=== PATIENT | male | born 1995 | race Caucasian/White ===

== ENCOUNTER 2024-10-06 20:10 | Outpatient (CLI) | payer BC, SELFPAY | END 2024-10-06 20:11 | disposition home or self-care (01) | LOC: AMB 10-15 10:52 | PROVIDERS: Visit Provider Emergency Medicine Emergency Medical Services | DX: S61.210A Laceration without foreign body of right index finger without damage to nail, initial encounter (principal); W26.0XXA Contact with knife, initial encounter; Y92.009 Unspecified place in unspecified non-institutional (private) residence as the place of occurrence of the external cause | CPT/HCPCS: A0998 ==

== ENCOUNTER 2024-10-06 21:16 | Emergency (ER) | payer BC, SELFPAY ==
--- OUTSIDE RECORDS SUMMARY | 2024-10-06 21:18 | XMS_ITS | Clinical Summary ---
Author Organization [facility] Address [address] [place] [address] Care Team Providers Care Qa Tester Name Role Phone Khanh Delgado MD Primary Care Provider [phone] Source Comments You are receiving this document as you are listed as the primary care provider,follow-up provider, or the patient has been referred to you for consultation.This is in compliance with the Medicare andMedicaid EHR Incentive Program,which states Providers who transition their patient to another setting of careor provider of care or refers their patient to another provider of care shouldprovide summary care record for each transition of care or referral. [facility] Allergies No known active allergies Medications * This document contains information received from the source organization and may not represent a complete record from that organization. melatonin 5 MG tablet Take 5-10mgs one to two hours before bedtime 60 Tab 2 8 Active ALBUterol sulfate HFA 108 (90 Base) MCG/ACT inhaler Inhale 1-2 Puffs every 4 hours as needed for Wheezing. Pharmacy may substitute albuterol HFA inhalers based on insurance 1 Inhaler 3 9 Active Active Problems Problem Noted Date Diagnosed Date Epididymal cyst 09/19/2019 Depression 03/15/2015 Overview (03/08/2016): start wellbutrin 03/2015, added trazodone 06/2015. Recommending behavioral health consult Mild intermittent asthma without complication Immunizations Immunization Administration Dates Next Due 9vHPV (Gardasil 9) 09/18/2019,12/10/2017 DTaP 12/22/1999, 6,05/28/1995,1994,1994 HepA Ped/Adol (1-18 yrs) 07/16/2007,01/18/2007 HepB Ped/Adol (0-18 yrs) 12/17/1995,1994,0 1994 Hib, Unspecified Formulation 05/28/1995,02/15/19 95,1994 Influenza IIV4 (Quadrivalent ) 0.5mL (26086) 09/18/2019 Influenza, Unspecified Formulation 06/04,07/16/2007,06/04/2004,2001 MCV4 (Menactra) 11/06/2005 MMR 12/22/1999,10/03/1995 PPSV23 (Pneumovax) 01/08/2018 Polio, Unspecified Formulation 0,05/28/1995,03/05/1995,1994 TDAP (BOOSTRIX) 11/09/2005 Td 09/28/2017 Tdap 09/28/2017,11/06/2005 Social History Tobacco Use Types Packs/Day Years Used Date Smoking Tobacco: Never Smokeless Tobacco: Never Alcohol Use Standard Drinks/Week Comments Yes 0 (1 standard drink = 0.6 oz pure alcohol) Drinks once every couple of months PHQ-2 Answer Date Recorded PHQ-2 Score 1 03/28/2022 Sex and Gender Information Value Date Recorded Sex Assigned at Not on file Legal Sex Male 9:38 AM CDT Gender Identity Not on file Sexual Orientation Not on file Last Filed Vital Signs Vital Sign Reading Time Taken Comments Blood Pressure 120/61 08/06/2021 2:03 PM MANAGER PROCESS EXCELLENCE Pulse 88 08/06/2021 2:11 PM MANAGER PROCESS EXCELLENCE Temperature 38 C (100.4 F) 08/06/2021 10:03 AM MANAGER PROCESS EXCELLENCE Respiratory Rate 20 08/06/2021 2:11 PM MANAGER PROCESS EXCELLENCE Oxygen Saturation 97% 08/06/2021 2:11 PM MANAGER PROCESS EXCELLENCE Inhaled Oxygen Concentration - - Weight 67.1 kg (148 lb) 09/18/2019 10:29 AM MANAGER PROCESS EXCELLENCE Height 171.5 cm (5' 7.5) 09/18/2019 10:29 AM CS T Body Mass Index 22.84 09/18/2019 10:29 AM MANAGER PROCESS EXCELLENCE Plan of Treatment Health Maintenance Due Date Last Done Comments Hep C Screening (Preventive Services) 1994 Pneumococcal (2 of 2 - PCV) 01/08/2019 01/08/2018 HPV Vaccine (3 - Risk male 3-dose series) 01/17/2020 09/18/2019, 12/10/2017 Asthma ACT (score of 20 or higher) 09/18/2020 09/18/2019, 07/23/2019, 01/08/2018 Adult Preventive Visit 09/18/2021 09/18/2019 COVID-19 Vaccine ( season) 2024 12/25/2020 Influenza (#1) 2024 09/18/2019, 05/08, 07/16/2007, Additional history exists DTaP/Tdap/Td (10 - Tdap) 09/28/2027 018, 09/28/2017, 11/09/2005, Additional history exists Zoster/Shingles (1 of 2) 2044 Hib Aged Out 05/28/1995, 02/03, 1994 No longer eligible based on patient's age to complete this topic HepB Completed 12/17/1995, 12/04, 1994 IPV (Polio) Completed 12/22/1999, 05/07, 03/05/1995, Additional history exists MCV4 Aged Out 11/06/2005 No longer eligi ble based on patient's age to complete this topic HepA Completed 07/16/2007, 01/18/2007 HIV Screening (Preventive Services) Completed 09/18/2019, 03/10/2016 Meningococcal B Aged Out No longer el igible based on patient's age to complete this topic Procedures Procedure Name Priority Date/Time Associated Diagnosis Comments HIV 1/2 AG/AB 4TH GEN Routine 09/18/2019 2:13 PM MANAGER PROCESS EXCELLENCE Screening for HIV (human immunodeficiency virus) from Last 3 Months or Most Recently Relevant to Health Maintenance Results * HIV 1/2 Ag/Ab 4th Generation (09/18/2019 2:13 PM MANAGER PROCESS EXCELLENCE) HIV 1/2 Antigen/Antib dain (4th generation) Negative (Non Reactive) Negative (Non Reactive) 09/18/2019 4:13 PM MANAGER PROCESS EXCELLENCE [facility] Comment:HIV-1 p24 Antigen an d HIV-1/HIV-2 Antibody not detected Blood Venipuncture / Unknown 09/18/2019 2:13 PM MANAGER PROCESS EXCELLENCE 09/18/2019 2:13 PM MANAGER PROCESS EXCELLENCE us Khanh Delgado MD LAB_1 Final Result [facility] [address] [place] [address], [facility] from Last 3 Months or Most Recently Relevant to Health Maintenance Insurance [employer] Advance Directives * Full Code (Latest Code Status on File) Date Activated Date Inactivated Comments 10/16/2016 3:09 PM 10/16/2016 7:07 PM Care Teams Qa Tester Relationship Specialty Start Date End Date Khanh Delgado MD [address] [place] [address] [facility] - General 03/02/15
--- OUTSIDE RECORDS SUMMARY | 2024-10-06 21:18 | XMS_ITS | Clinical Summary ---
Author Organization [facility] Address [address] [place] [address]. [place] [address] Care Team Providers Care Thoroughbred Horse Farm Manager Name Role Phone Artemio Rankin Judd OD Unavailable [phone] Allergies Active Allergy Reactions Criticality Noted Date Comments Cats 02/20/2012 Dust Mites 02/20/2012 Medications albuterol 90 MCG/ACT inhalerIndicati ons:Pain in limb,Other specified viral warts Inhale 2 puffs into the lungs every 6 hours as needed. Active BuPROPion HCl (WELLBUTRIN PO) Acti ve TRAZODONE HCL PO Active cephALEXin (KEFLEX) 500 MG capsuleIndicati ons:Ingrowing nail Take 1 capsule (500 mg) by mouth 2 times daily 20 capsule 0 5 Active Additional Information Patient not taking.Reported on 12/12/2023 Active Problems No known active problems Family History Medical History Relation Comments Glaucoma No family hx of Macular Degeneration No family hx of Social History Tobacco Use Types Packs/Day Years Used Date Smoking Tobacco: Never Smokeless Tobacco: Never Alcohol Use Standard Drinks/Week Comments Not Asked 0 (1 standard drink = 0.6 oz pur e alcohol) PHQ-2 Answer Date Recorded PHQ-2 Score 0 12/12/2023 Adolescent Education Answer Date Record ed Getting School Help Needed Not on file 12/11 Sex and Gender Information Value Date Recorded Sex Assigned at Male 12/13/2023 11:49 PM CDT Legal Sex Male 3:09 AM PLATING STRIPPER Gender Identity Male 12/13/2023 11:49 PM CDT Sexual Orientation Choose not to disclose 05/09/ 2024 11:49 PM CDT Last Filed Vital Signs Vital Sign Reading Time Taken Comments Blood Pressure 112/80 07/26/2015 2:38 PM PLATING STRIPPER Pulse 60 02/20/2012 3:50 PM CDT Temperature - - Respiratory Rate - - Oxygen Saturation - - Inhaled Oxygen Concentration - - Weight 63.5 kg (140 lb) 07/26/2015 2:38 PM PLATING STRIPPER Height 172.7 cm (5' 8) 07/26/2015 2:38 PM PLATING STRIPPER Body Mass Index 21.29 07/26/2015 2:38 PM PLATING STRIPPER Plan of Treatment Upcoming Encounters Date Type Department Care Team (Late st Contact Info) Description 12/15/2024 2:30 PM CDT Office Visit [facility] [address] [facility] [address] [place] [address] Artemio Rankin Chi, OD [address] [place], [place] [id number] Health Maintenance Due Date Last Done Comments ADVANCE CARE PLANNING 1994 ANNUAL REVIEW OF HM ORDERS 1994 YEARLY PREVENTIVE VISIT 1997 HIV SCREENING 2009 HEPATITIS C SCREENING 2012 HPV IMMUNIZATION (3 - Male 3-dose series) 12/11/2019 09/18/2019, 12/10/2017 COVID-19 Vaccine ( - season) 2024 12/25/2020 INFLUENZA VACCINE (#1) 2024 0, 06/04/2012, 07/16/2007, Additional history exists PHQ-2 (once per calendar year) 2024 12/12/2023 DTAP/TDAP/TD IMMUNIZATION (9 - Td or Tdap) 09/28/2027 09/28/2017, 11/09/2005, 11/06/2005, Additional history exists ZOSTER IMMUNIZATION (1 of 2) 2044 HEPATITIS B IMMUNIZATION Completed 996, 1994, 1994 MENINGITIS IMMUNIZATION Aged Out 11/06/2005 No l onger eligible based on patient's age to complete this topic Pneumococcal Vaccine: Pediatrics (0 to 5 Years) and At-Risk Patients (6 to 49 Years) Aged Out 01/08/2018 No longer eligible based on patient's age to complete this topic Insurance BCBS OUT OF STATE BCBS OUT OF STATE Care Teams Thoroughbred Horse Farm Manager Relationship Specialty Start Date End Date Artemio Rankin Chi, OD [address] [place] [address] Assigned Surgical Provider 12/27/23
[2024-10-06 21:23] VITALS: BP 112/61; PULSE 64; RESP 16; TEMP 35.9; O2SAT 100; BMI 23.3
--- NOTE | 2024-10-06 21:39 | ED.GENADULT ---
HPI - General Adult General Chief complaint: Unspecified Complaint, Adult Stated complaint: Shaking, lightheaded Time Seen by Provider: 10/06/24 21:19 History of Present Illness HPI narrative: This 29-year-old male comes in with an injury to his right index finger. He has a very small laceration on the tip of the finger that bled initially and then had recurrent bleeding but is no longer bleeding. He has a Band-Aid over it but comes in also with some persistent shaking and tremor like activity. He states he has not had symptoms like this in the past and yet he is able to function normally. He is able to ambulate and speak normally. Related Data Home Medications ?Medication ?Instructions ?Recorded ?Confirmed No Known Home Medications 10/06/24 10/06/24 Allergies Allergy/AdvReac Type Severity Reaction Status Date / Time No Known Drug Allergies Allergy Verified 08/03/23 13:33 Review of Systems Status of ROS: Reports: 10 or more systems reviewed and unremarkable except as noted in History and below Narrative: Constitutional: No fevers, no weight gain or loss. Eyes: No discharge. No vision changes. HENT: No congestion, no sore throat, no ear pain. Cardiovascular: No chest pain, no palpitations. Respiratory: No shortness of breath, no wheezes, no cough. Gastrointestinal: No abdominal pain, no vomiting, no diarrhea. Genitourinary: No dysuria, no hematuria. Musculoskeletal: Normal range of motion. Skin: No rashes, no pruritis. Neurological: No dizziness, weakness, sensory change, speech change. Endo/Heme/Allergies: No bruising or bleeding. No polydipsia. Pysch: no suicidality, no anxiety, no insomnia. All other systems reviewed and are negative. [facility] Social History Smoking Status: Never smoker How often do you have a drink containing alcohol: never AUDIT-C Alcohol total score: 0 Non-prescribed substance use: denies use Exam Narrative: Exam Narrative: Constitutional: Well-developed, well-nourished, no acute distress. HEENT: Normocephalic, atraumatic. Neck: Normal range of motion. Nontender. Supple. Heart: Regular. No murmurs. Normal rate. Intact distal pulses. Lungs: Clear to auscultation. No chest discomfort. No wheezes, rhonchi, or rales. Abdomen: Normal bowel sounds. Nontender. No rebound tenderness. Genitalia: Deferred. Back: No midline tenderness. Normal range of motion. Extremities: Normal range of motion. Right index finger has a small laceration less than 1 cm in length. Skin: Intact. No rash. Warm. No erythema or pallor. Neurologic: No altered sensation. No weakness. Alert and oriented. Psychiatric: No suicidality. No anxiety or depression. No insomnia. Nursing notes and vitals signs are reviewed. Const: Vital Signs, click to edit/add: Vital Signs - 24 hr 10/06/24 21:23 10/06/24 21:46 Temperature 96.6 F L Pulse Rate [Pulse Oximeter] 64 87 Respiratory Rate 16 Blood Pressure [Ri t Upper Arm] 112/61 Pulse Oximetry 100 97 Oxygen Delivery Me thod Room Air Room Air Course Vital Signs Vital signs: Initial Vital Signs Temperature 96.6 F L 10/06/24 21:23 Temperature Source Temporal Artery Scan 10/06/24 21:23 Pulse Rate 64 10/06/24 21:23 Respiratory Rate 16 10/06/24 21:23 Blood Pressure 112/61 10/06/24 21:23 Blood Pressure Mean 78 10/06/24 21:23 Blood Pressure Position Sitting 10/06/24 21:23 Pulse Oximetry 100 10/06/24 21:23 Oxygen Delivery Method Room Air 10/06/24 21:23 Vital Signs Temperature 96.6 F L 10/06/24 21:23 Pulse Rate 64 10/06/24 21:23 Respiratory Rate 16 10/06/24 21:23 Blood Pressure 112/61 10/06/24 21:23 Pulse Oximetry 100 10/06/24 21:23 Oxygen Delivery Method Room Air 10/06/24 21:23 Temperature 96.6 F L 10/06/24 21:23 Pulse Rate 87 10/06/24 21:46 Respiratory Rate 16 10/06/24 21:23 Blood Pressure 112/61 10/06/24 21:23 Pulse Oximetry 97 10/06/24 21:46 Oxygen Delivery Method Room Air 10/06/24 21:46 Medications Administered Medications: Discontinued Medications Generic Name Dose Route Start Last Admin Trade Name Freq PRN Reason Stop Dose Admin Lorazepam 1 mg 10/06/24 21:39 10/06/24 21:48 Lorazepam 1 Mg Tablet PO 10/06/24 21:40 1 mg ONCE ONE Administration Medical Decision Making MDM Narrative Medical decision making narrative: This patient has a small laceration on the tip of his right index finger. Wound was cleansed and I did apply Dermabond. The patient is having some persistent movements that he states he cannot control however when I applied Dermabond he remains still throughout that application. The patient did receive a tablet of Ativan 1 mg as I suspect that he is having some overflow of his sympathetic nervous system causing this activity. He has normal vital signs and has normal exam otherwise. After receiving Ativan the patient continued to have some tremor like activity. It really seems to be a resting tremor. When he focuses on something or is doing something he has no tremor symptoms. This patient is okay to be discharged home. I advised him to follow-up with his primary physician or consider a neurology clinic appointment if these particular symptoms are persistent. Discharge Plan Discharge Clinical Impression: Finger laceration Patient Disposition: Home, Self-Care Condition: Stable Additional Instructions: Use [id number] medicines as needed and directed. Follow up with MD return if worsening. Consider follow-up appointment with neurology clinic if symptoms are persistent. Prescriptions: No Action No Known Home Medications Follow Up/Referrals: Provider,Not a Local [Primary Care Provider] - Stand Alone Forms: [facility] Info Instructions
[2024-10-06 21:46] VITALS: PULSE 87; O2SAT 97
[2024-10-06] MEDS: LORazepam 1 MG TABLET PO (21:48)
--- OUTSIDE RECORDS SUMMARY | 2024-10-06 21:53 | XMS_ITS | Clinical Summary ---
Author Organization [facility] Address [address] [place] [address] Care Team Providers Care Automotive Vehicle Inspector Name Role Phone Khanh Delgado MD Primary Care Provider [phone] Source Comments You are receiving this document [...] for each transition of care or referral. [facility] Allergies No known active allergies Medications * [...] 05/28/1995,02/15/19 95,1994 Influenza IIV4 (Quadrivalent ) 0.5mL (77045) 09/18/2019 Influenza, Unspecified Formulation 06/04,07/16/2007,06/04/2004,2001 MCV4 (Menactra) [...] Comments Blood Pressure 120/61 08/06/2021 2:03 PM SNAILER Pulse 88 08/06/2021 2:11 PM SNAILER Temperature 38 C (100.4 F) 08/06/2021 10:03 AM SNAILER Respiratory Rate 20 08/06/2021 2:11 PM SNAILER Oxygen Saturation 97% 08/06/2021 2:11 PM SNAILER Inhaled Oxygen Concentration - - Weight 67.1 kg (148 lb) 09/18/2019 10:29 AM SNAILER Height 171.5 cm (5' 7.5) 09/18/2019 10:29 AM CS T Body Mass Index 22.84 09/18/2019 10:29 AM SNAILER Plan of Treatment Health Maintenance Due Date [...] AG/AB 4TH GEN Routine 09/18/2019 2:13 PM SNAILER Screening for HIV (human immunodeficiency virus) from Last 3 Months or Most Recently Relevant to Health Maintenance Results * HIV 1/2 Ag/Ab 4th Generation (09/18/2019 2:13 PM SNAILER) HIV 1/2 Antigen/Antib dain (4th generation) Negative (Non Reactive) Negative (Non Reactive) 09/18/2019 4:13 PM SNAILER [facility] Comment:HIV-1 p24 Antigen an d HIV-1/HIV-2 Antibody not detected Blood Venipuncture / Unknown 09/18/2019 2:13 PM SNAILER 09/18/2019 2:13 PM SNAILER us Khanh Delgado MD LAB_1 Final Result [facility] [address] [place] [address], [facility] from Last 3 Months or Most Recently Relevant to Health Maintenance Insurance [employer] Advance Directives * Full Code (Latest Code Status on File) Date Activated Date Inactivated Comments 10/16/2016 3:09 PM 10/16/2016 7:07 PM Care Teams Automotive Vehicle Inspector Relationship Specialty Start Date End Date Khanh Delgado MD [address] [place] [address] [facility] - General 03/02/15
--- OUTSIDE RECORDS SUMMARY | 2024-10-06 21:53 | XMS_ITS | Clinical Summary ---
Author Organization [facility] [employer] [facility] Address [address] [place] [address] Care Team Providers Care School Cleaner Name Role Phone Surgery, [facility] General Primary Care Pro vider Allergies No known active allergies Medications albuterol HFA (PRO-AIR; VENTOLIN; PROVENTIL) 90 mcg/actuation inhaler Inhale 2 Puffs by mouth. Active Encounters Date Type Department Care Team Description 09/09/2024 3:00 PM CONTROL ROOM AGENT Office Visit [facility] [address] [place] [address] Tripp Kelsey, DPCyrus Follow Up (Left foot) 09/09/2024 Travel from Last 3 Months Immunizations Name Administration Dates Next Due Tdap 09/28/2017 Social History Tobacco Use Types Packs/Day Years Used Date Smoking Tobacco: Never Passive Smoke Exposure: Never Smokeless Tobacco: Never Tobacco Cessation:Counseling Given: Yes Sex and Gender Information Value Date Recorded Sex Assigned at Not on file Legal Sex Male 2:56 PM CONTROL ROOM AGENT Gender Identity Not on file Sexual Orientation Not on file Obstetrics History Last Filed Vital Signs Vital Sign Reading Time Taken Comments Blood Pressure 123/71 06/21/2024 2:54 PM CONTROL ROOM AGENT Pulse 53 09/09/2024 3:05 PM CONTROL ROOM AGENT Temperature 36.6 C (97.9 F) 06/21/2024 2:54 PM CONTROL ROOM AGENT Respiratory Rate 16 06/21/2024 2:54 PM CONTROL ROOM AGENT Oxygen Saturation 98% 09/09/2024 3:05 PM CONTROL ROOM AGENT Inhaled Oxygen Concentration - - Weight 74.8 kg (165 lb) 09/09/2024 3:05 PM CONTROL ROOM AGENT Height 172.7 cm (5' 8) 12/09/2019 6:27 PM CDT Body Mass Index 25.09 12/09/2019 6:27 PM CDT Plan of Treatment Health Maintenance Due Date Last Done Comments Depression screening for age 12+ 2006 HIV for age 15-65 2009 BMI (ht and wt on same day) for age 18+ 2012 Hepatitis C screening for ag e 18-79 2012 COVID-19 vaccine series ( season) 2024 12/25/2020 Influenza for age 9-49 04/06/2024 Tetanus booster 09/28/2027 09/28/2017 Tdap Completed 09/28/2017 Pneumococcal series for age 6-49 Aged Out No longer eligible based on patient's age to complete this topic Insurance [facility] KIRK ALMENDAREZ Care Teams School Cleaner Relationship Specialty Start Date End Date Surgery, [facility] [address] [place] [phone] PCP - General 11/01/20
--- OUTSIDE RECORDS SUMMARY | 2024-10-06 21:53 | XMS_ITS | Clinical Summary ---
Author Organization [facility] Address [address] [place] [address]. [place] [address] Care Team Providers Care Produce Team Lead Name Role Phone Artemio Rankin Judd OD Unavailable [phone] Allergies Active Allergy Reactions Criticality Noted [...] PM CDT Legal Sex Male 3:09 AM CHARGE ENTRY CLERK Gender Identity Male 12/13/2023 11:49 PM CDT Sexual Orientation Choose not to disclose 05/09/ 2024 11:49 PM CDT Last Filed Vital Signs Vital Sign Reading Time Taken Comments Blood Pressure 112/80 07/26/2015 2:38 PM CHARGE ENTRY CLERK Pulse 60 02/20/2012 3:50 PM CDT Temperature - - Respiratory Rate - - Oxygen Saturation - - Inhaled Oxygen Concentration - - Weight 63.5 kg (140 lb) 07/26/2015 2:38 PM CHARGE ENTRY CLERK Height 172.7 cm (5' 8) 07/26/2015 2:38 PM CHARGE ENTRY CLERK Body Mass Index 21.29 07/26/2015 2:38 PM CHARGE ENTRY CLERK Plan of Treatment Upcoming Encounters Date Type Department Care Team (Late st Contact Info) Description 12/15/2024 2:30 PM CDT Office Visit [facility] [place] [address] [facility] [address] [place] [address] Artemio Rankin Chi, OD [address] [place], [place] [id number] Health Maintenance Due Date Last Done Comments [...] STATE BCBS OUT OF STATE Care Teams Produce Team Lead Relationship Specialty Start Date End Date Artemio Rankin Chi, OD [address] [place] [address] Assigned Surgical Provider 12/27/23
== END 2024-10-06 22:46 | disposition home or self-care (01) ==
PROVIDERS: Emergency Provider Emergency Medicine Emergency Medical Services
DX: S61.210A Laceration without foreign body of right index finger without damage to nail, initial encounter (principal); W26.9XXA Contact with unspecified sharp object(s), initial encounter
CPT/HCPCS: 12001; 99282; 99284; A9270

== ENCOUNTER 2025-05-20 19:20 | Emergency (ER) | payer BC, SELFPAY ==
--- OUTSIDE RECORDS SUMMARY | 2025-05-20 19:23 | XMS_ITS | Clinical Summary ---
[facility] Organization [facility] Address [address] [place] [address] Care Team Providers Care General House Worker Name Role Phone Khanh Delgado MD Primary Care Provider [phone] Source Comments You are receiving this document [...] for each transition of care or referral. [facility] No known active allergies Medications melatonin 5 MG tablet Take 5-10mgs one [...] health consult Mild intermittent asthma without complication Encounters Date Type Department Care Team Description 02/24/2025 3:00 PM CDT Telemedicine [place] [id number] Counseling [address] [facility] [place] [address] Rafy Ocasio, [facility] Depression, unspecified depression type (Primary Dx) from Last 3 Months Immunizations Immunization Administration Dates Next Due 9vHPV (Gardasil 9) 09/18/2019,12/10/2017 DTaP 12/22/1999, 6,05/28/1995,1994,1994 HepA Ped/Adol (1-18 yrs) 07/16/2007,01/18/2007 HepB Ped/Adol (0-18 yrs) 12/17/1995,1994,0 1994 Hib, Unspecified Formulation 05/28/1995,02/15/19 95,1994 Influenza IIV4 (Quadrivalent ) 0.5mL (50190) 09/18/2019 Influenza, Unspecified Formulation 06/04,07/16/2007,06/04/2004,2001 MCV4 (Menactra) [...] Comments Blood Pressure 120/61 08/06/2021 2:03 PM ENVIRONMENTAL PERMITTING SPECIALIST Pulse 88 08/06/2021 2:11 PM ENVIRONMENTAL PERMITTING SPECIALIST Temperature 38 C (100.4 F) 08/06/2021 10:03 AM ENVIRONMENTAL PERMITTING SPECIALIST Respiratory Rate 20 08/06/2021 2:11 PM ENVIRONMENTAL PERMITTING SPECIALIST Oxygen Saturation 97% 08/06/2021 2:11 PM ENVIRONMENTAL PERMITTING SPECIALIST Inhaled Oxygen Concentration - - Weight 67.1 kg (148 lb) 09/18/2019 10:29 AM ENVIRONMENTAL PERMITTING SPECIALIST Height 171.5 cm (5' 7.5) 09/18/2019 10:29 AM CS T Body Mass Index 22.84 09/18/2019 10:29 AM ENVIRONMENTAL PERMITTING SPECIALIST Plan of Treatment Health Maintenance Due Date Last Done Comments Hep C Screening (Preventive Services) 1994 Pneumococcal Vaccine (2 of 2 - PCV) 01/08/2019 01/08/2018 HPV Vaccine (3 - Risk male 3-dose series) 01/17/2020 09/18/2019, 12/10/2017 Asthma ACT (score of 20 or higher) 09/18/2020 09/18/2019, 07/23/2019, 01/08/2018 Adult Preventive Visit 09/18/2021 09/18/2019 COVID-19 Vaccine ( season) 2025 12/25/2020 Influenza Vaccine (#1) 2025 0, 06/04/2012, 07/16/2007, Additional history exists DTaP/Tdap/Td Vaccine (10 - Tdap) 09/28/2027 09/28/2017, 09/28/2017, 11/09/2005, Additional history exists Zoster/Shingles Vaccine (1 of 2) 2044 Hib Vaccine Aged Out 05/28/1995, 02/03, 1994 No longer eligible based on patient's age to complete this topic HepB Vaccine Completed 12/17/1995, 12/04, 1994 IPV (Polio) Vaccine Completed 12/22/1999, 05/28/1995, 03/05/1995, Additional history exists MCV4 Vaccine Aged Out 11/06/2005 No longer eligi ble based on patient's age to complete this topic HepA Vaccine Completed 07/16/2007, 01/18/2007 HIV Screening (Preventive Services) Completed 09/18/2019, 03/10/2016 Meningococcal B Vaccine Aged Out No l onger eligible based on patient's age to complete this topic Procedures Procedure Name Priority Date/Time Associated Diagnosis Comments HIV 1/2 AG/AB 4TH GEN Routine 09/18/2019 2:13 PM ENVIRONMENTAL PERMITTING SPECIALIST Screening for HIV (human immunodeficiency virus) from Last 3 Months or Most Recently Relevant to Health Maintenance Results * HIV 1/2 Ag/Ab 4th Generation (09/18/2019 2:13 PM ENVIRONMENTAL PERMITTING SPECIALIST) HIV 1/2 Antigen/Antib dain (4th generation) Negative (Non Reactive) Negative (Non Reactive) 09/18/2019 4:13 PM ENVIRONMENTAL PERMITTING SPECIALIST [facility] Comment:HIV-1 p24 Antigen an d HIV-1/HIV-2 Antibody not detected Blood Venipuncture / Unknown 09/18/2019 2:13 PM ENVIRONMENTAL PERMITTING SPECIALIST 09/18/2019 2:13 PM ENVIRONMENTAL PERMITTING SPECIALIST us Khanh Delgado MD LAB_1 Final Result [facility] [address] [place] [address], [facility] from Last 3 Months or Most Recently Relevant to Health Maintenance Insurance [employer] Advance Directives * Full Code (Latest Code Status on File) Date Activated Date Inactivated Comments 10/16/2016 3:09 PM 10/16/2016 7:07 PM Care Teams General House Worker Relationship Specialty Start Date End Date Khanh Delgado MD [address] [place] [address] PCP - General 03/02/15
--- OUTSIDE RECORDS SUMMARY | 2025-05-20 19:23 | XMS_ITS | Clinical Summary ---
Author Organization [facility] Address [address] [place] [address]. [place] [address] Care Team Providers Care Filter Plant Operator Name Role Phone Artemio Rankin Judd OD Unavailable [phone] Allergies Active Allergy Reactions Criticality Noted [...] PM CDT Legal Sex Male 3:09 AM SHALE PLANER OPERATOR Gender Identity Male 12/13/2023 11:49 PM CDT Sexual Orientation Choose not to disclose 05/09/ 2024 11:49 PM CDT Last Filed Vital Signs Vital Sign Reading Time Taken Comments Blood Pressure 112/80 07/26/2015 2:38 PM SHALE PLANER OPERATOR Pulse 60 02/20/2012 3:50 PM CDT Temperature - - Respiratory Rate - - Oxygen Saturation - - Inhaled Oxygen Concentration - - Weight 63.5 kg (140 lb) 07/26/2015 2:38 PM SHALE PLANER OPERATOR Height 172.7 cm (5' 8) 07/26/2015 2:38 PM SHALE PLANER OPERATOR Body Mass Index 21.29 07/26/2015 2:38 PM SHALE PLANER OPERATOR Plan of Treatment Health Maintenance Due Date Last Done Comments ADVANCE CARE PLANNING 1994 ANNUAL REVIEW OF HM ORDERS 1994 YEARLY PREVENTIVE VISIT 1997 HIV SCREENING 2009 HEPATITIS C SCREENING 2012 HPV VACCINE (3 - Male 3-dose series) 12/11/2019 09/18/2019, 12/10/2017 PHQ-2 (once per calendar year) 2024 12/12/2023 COVID-19 VACCINE ( season) 2025 12/25/2020 INFLUENZA VACCINE (#1) 2025 0, 06/04/2012, 07/16/2007, Additional history exists DTAP/TDAP/TD VACCINE (9 - Td or Tdap) 09/28/2027 09/28/2017, 11/09/2005, 11/06/2005, Additional history exists ZOSTER VACCINE (1 of 2) 2044 HEPATITIS B VACCINE Completed 12/17/1995, 1994, 1994 MENINGITIS VACCINE Aged Out 11/06/2005 No longer eligible based on patient's age to complete this topic PNEUMOCOCCAL VACCINE: PEDIATRICS (0 to 5 YEARS) AND AT-RISK PATIENTS (6 to 49 YEARS) Aged Out 01/08/2018 No longer eligible based on patient's age to complete this topic Insurance BCBS OUT OF STATE BCBS OUT OF STATE Care Teams Filter Plant Operator Relationship Specialty Start Date End Date Artemio Rankin Chi, OD [address] [place] [id number] Assigned Surgical Provider 12/27/23
--- OUTSIDE RECORDS SUMMARY | 2025-05-20 19:23 | XMS_ITS | Clinical Summary ---
Author Organization [facility] Address [address] [place] [address] Care Team Providers Care Public Health Name Role Phone Harris Dunlap MD Primary Care P rovider Allergies No known active allergies Medications albuterol HFA (PRO-AIR; VENTOLIN; PROVENTIL) 90 mcg/actuation inhaler Inhale 2 Puffs by mouth. Active durable medical equipment (DME)Indication s:Bunion of left foot,S/P foot surgery, left 01ES-L Airselect, SHORT, Large 1 Each 5 Active Knee WalkerIndicatio ns:Bunion of left foot,S/P foot surgery, left,Hallux valgus with bunions, left For home use. *Note that item is a rental.* Height: 1.727 m Weight: 163.0lb Diagnosis: post foot surgery Length of need: 3 months 1 Each 5 Active oxyCODONE (ROXICODONE) 5 mg immediate release tabletIndicatio ns:Bunion, left Take 1-2 Tablets (5-10 mg) by mouth every 4 hours if needed for Pain. 20 Tablet 05/18/2025 1:24 PM CDT 5 Active Knee WalkerIndicatio ns:Bunion of left foot,S/P foot surgery, left,Hallux valgus with bunions, left For home use. *Note that item is a rental.* Height: 1.727 m Weight: 163.0lb Diagnosis: post foot surgery Length of need: 3 months 1 Each 05/06/20 Discontinu ed(Reorder (E-cancel not sent)) Active Problems Problem Noted Date Diagnosed Date Mild intermittent asthma without complication Encounters Date Type Department Care Team Description 05/20/2025 1:15 PM CDT Ancillary Procedure [facility] [address] [place] [address] Arrived 05/20/2025 1:00 PM CDT Office Visit [facility] [address] [place] [address] Tripp Kelsey DPM Post-op (Hallux valgus with bunions, left/DOS 05/18/25) 05/20/2025 Nurse Triage [facility] [address] [place] [address] Harris Dunlap MD Abdominal Pain (Since 8 pm last night) 05/20/2025 Travel 05/19/2025 Telephone [facility] [address] [place] [address] Tripp Kelsey DPM Surgical Followup 05/18/2025 12:30 PM CDT - 05/18/2025 3:00 PM CDT Surgery [facility] [address] [place] [address] Tripp Kelsey DPM BUNIONECTOMY LAPIDUS 05/18/2025 12:10 PM CDT Anesthesia Event [facility] [address] [place] [address] Nelly Ocasio CRNA 05/18/2025 10:30 AM CDT - 05/18/2025 5:30 PM CDT Hospital Encounter [facility] [address] [place] [address] Tripp Kelsey DPM Bunion, left (Primary Dx) Discharge Disposition: Home Self Care 05/18/2025 Travel 05/08/2025 3:05 PM CDT Office Visit [facility] [address] [place] [address] Harris Dunlap MD Preoperative Exam (05/18/25/[facility]. [place]/LT foot / Bunion/) 05/08/2025 Travel 05/05/2025 3:00 PM CDT Office Visit [facility] [address] [place] [address] Tripp Kelsey DPM Follow Up (Left foot, final surgical discussion, DOS 05/18/25) 05/05/2025 Travel 04/28/2025 Telephone [facility] [address] [place] [address] Tripp Kelsey DPM Form ([facility]) 03/19/2025 2:00 PM CDT Office Visit [facility] [address] [place] [address] John Lopez, [facility] Visit 03/19/2025 Travel 02/19/2025 3:00 PM CDT Office Visit [facility] [address] [place] [address] John Lopez, [facility] Visit 02/19/2025 Travel from Last 3 Months Immunizations Immunization Administration Dates Next Due DTaP 12/22/1999, 6,05/28/1995,03/05,1994 HIB PRP-T (ActHIB,Hiberix) 02/15/1995 HPV 9 (Gardasil 9) 09/18/2019,12/10/2017 Hepatitis A (Peds) 07/16/2007,01/18/2007 Hepatitis B (Peds) 12/17/1995,1994, 995 Hib Conjugate, Unspecified 05/28/1995,,02/15/1995,12/18 Inactivated Polio Vaccine 12/22/1999 Influenza Virus, Unspecified 06/04/2012, 07/16/2007,06/04/2004,05/12 Influenza, IIV3 (Age >=3 years) 06/04/20 12,07/16/2007,06/04/2004,05/12 Influenza, IIV4 09/18/2019 MMR 12/22/1999,10/03/1995 Meningococcal Vaccine (Menactra) 11/06/2005 Pneumococcal Poly,23-Valent (Pneumovax) 01/08/2018 Polio Virus, Unspecified 12/22/1999,05/07,03/05/1995,12/18 Td (Age >=7 Years) 09/28/2017 Tdap 09/28/2017,11/09/2005,11/06/2005 Social History Tobacco Use Types Packs/Day Years Used Date Smoking Tobacco: Never Passive Smoke Exposure: Never Smokeless Tobacco: Never Tobacco Cessation:Counseling Given: Yes Alcohol Use Standard Drinks/Week Comments Not Currently 0 (1 standard drink = 0.6 oz pur e alcohol) PHQ-2 Answer Date Recorded PHQ-2 TOTAL SCORE 3 03/19/2025 Social Connections Answer Date Recorded Do you often feel lonely or isolated from those around you? 0 05/08/2025 Alcohol Use Answer Date Recorded How often do you have a drink containing alcohol ? 0 05/08/2025 Average Number of Drinks Not on file 025 Frequency of Binge Drinking Not on file 10/2024 Financial Resource Strain Answer Date R ecorded Difficulty of Paying Living Expenses 2 05/08/2025 Difficulty of Paying Living Expenses 1 05/08/2025 Food Insecurity Answer Date Recorded Do you worry your food will run out before you are able to buy more? 1 05/08/2025 Transportation Needs Answer Date Record ed Does lack of transportation keep you from medica l appointments? 1 05/08/2025 Does lack of transportation keep you from work, meetings or getting things that you need? 1 05/08/2025 Housing Stability Answer Date Recorded What is your housing situation today? 1 05/08/2025 Utilities Answer Date Recorded Do you have trouble paying f or utilities (for example, heat, electricity, water, phone)? 1 05/08/2025 Sex and Gender Information Value Date Recorded Sex Assigned at Not on file Legal Sex Male 2:56 PM PLATFORM OPERATIONS DIRECTOR Gender Identity Not on file Sexual Orientation Not on file Obstetrics History Last Filed Vital Signs Vital Sign Reading Time Taken Comments Blood Pressure 126/79 05/20/2025 1:12 PM CDT Pulse 87 05/20/2025 1:12 PM CDT Temperature 36.7 C (98 F) 05/20/2025 1:12 PM CDT Respiratory Rate 16 05/18/2025 4:45 PM CDT Oxygen Saturation 97% 05/20/2025 1:12 PM CDT Inhaled Oxygen Concentration - - Weight 74 kg (163 lb 3.2 oz) 05/18/2025 11:01 AM CDT Height 174 cm (5' 8.5) 05/18/2025 11:01 AM CDT Body Mass Index 24.45 05/18/2025 11:01 AM CDT Plan of Treatment Upcoming Encounters Date Type Department Care Team (Late st Contact Info) Description 05/25/2025 4:45 PM CDT Telemedicine [facility] [address] [place] [address] Eloisa Billingsley, PhD, LP [address] [place] [address] 05/28/2025 3:00 PM CDT Office Visit [facility] [address] [phone] Tripp Kelsey DPM [address] [place] [address] 06/30/2025 3:00 PM PLATFORM OPERATIONS DIRECTOR Office Visit [facility] [address] [place] [address] Tripp Kelsey DPM [address] [place] [address] Health Maintenance Due Date Last Done Comments HPV series for age 9-45 (3 - Male 3-dose series) 12/11/2019 09/18/2019, 12/10/2017 COVID-19 vaccine series (2024- season) 2025 12/25/2020 Influenza Vaccine (#1) 2025 , 06/04/2012, 06/04/2012, Additional history exists Depression screening for age 12+ 03/19/2026 03/19/2025 BMI (ht and wt on same day) for age 18+ 05/08/2026 05/08/2025 Tetanus booster 09/28/2027 09/28/2017, 09/07, 11/09/2005, Additional history exists RSV vaccine for adults or (1 - 1-dose 75+ series) 2069 Hepatitis B series for 19+ Completed 12/16, 1994, 1994 Pneumococcal series for age 6-49 Aged Out 01/08/2018 No longer eligible based on patient's age to complete this topic HIV for age 15-65 Completed 05/18/2025 Hepatitis C screening for age 18-79 Completed 05/18/2025 Medical Devices Implanted Type Area Sewing Machine Operator Plastic Zipper Device Identifier Shelf Expiration Date Model / Serial / Lot Screw Ankle 3.5x12mm Ortholoc 3di Lock - [id number] Implanted:Qty: 1 on 05/18/2025 by Tripp Kelsey DPM at [facility] Left: Foot [employer] [id number] / / 2.7 X 15mm Snap Off Screw Implanted:Qty: 1 on 05/18/2025 by Tripp Kelsey DPM at [facility] Left: Foot [employer] / [id number] / Screw Ankle 3.5x14mm Ortholoc 3di Lock - [id number] Implanted:Qty: 1 on 05/18/2025 by Tripp Kelsey DPM at [facility] Left: Foot [employer] [id number] / / Screw Ankle 3.5x18mm Ortholoc 3di Lock - [id number] Implanted:Qty: 2 on 05/18/2025 by Tripp Kelsey DPM at [facility] Left: Foot [employer] [id number] / / Lag Screw Implanted:Qty: 1 on 05/18/2025 by Tripp Kelsey DPM at [facility] Left: Foot [employer] [id number] / / Standard Lapidus Plate Left Implanted:Qty: 1 on 05/18/2025 by Tripp Kelsey DPM at [facility] Left: Foot [employer] [id number] / / 3.5 X 18mm Cannulated Screw Implanted:Qty: 1 on 05/18/2025 by Tripp Kelsey DPM at [facility] Left: Foot [employer] / [id number] / Explanted Type Area Sewing Machine Operator Plastic Zipper Device Identifier Shelf Expiration Date Model / Serial / Lot Pin Foot 1.4mm Ortholoc Temp Disp - [id number] Explanted:Qty: 2 on 05/18/2025 by Tripp Kelsey DPM at [facility] Left: Foot Calvin [id number] / / Description:This is a 1.1 mm pin Wire Santi Ankle [id number] Ortholoc 3di - [id number] Explanted:Qty: 2 on 05/18/2025 by Tripp Kelsey DPM at [facility] Left: Foot [employer] [id number] / / 1.4mm Guidewire Explanted:Qty: 3 on 05/18/2025 by Tripp Kelsey DPM at [facility] Left: Foot [employer] [id number] / / Procedures Procedure Name Priority Date/Time Associated Diagnosis Comments XR C-ARM GREATER 1 HR Routine 05/18/2025 2:20 PM CDT EXPOSURE (BBF) HBSAG STAT 05/18/2025 12:55 PM CDT EXPOSURE (BBF) ANTI HBS STAT 05/18/2025 12:55 PM CDT EXPOSURE (BBF) ANTI HBC STAT 05/18/2025 12:55 PM CDT EXPOSURE (BBF) ANTI HCV STAT 05/18/2025 12:55 PM CDT EXPOSURE (BBF) RAPID HIV STAT 05/18/2025 12:55 PM CDT from Last 3 Months Results * XR C-ARM GREATER 1 HR (05/18/2025 2:20 PM CDT) Anatomical Region Laterality Modality X-Ray Angiograph y 05/19/2025 6:17 AM CDT Narrative 05/19/2025 6:17 AM CDT For Patients: As a result of the Cures Act, medical imaging exams and procedure reports are released immediately into your electronic medical record. You may view this report before your referring provider. If you have questions, please contact your health care provider. INDICATION: Left bunion. TECHNIQUE: C-arm fluoro time. FINDINGS: Fluoroscopy time 24 seconds. One image. Dictated by Ramiro Ruiz MD @ 05/19/2025 6:17:54 AM (Electronically Signed) Procedure Note David Ruiz MD - 05/19/2025 For Patients: As a result of the Cures Act, medical imagingexams and procedure reports are released immediately into your electronicmedical record. You may view this report before your referring provider.If you have questions, please contact your health care provider. INDICATION: Left bunion. TECHNIQUE: C-arm fluoro time. FINDINGS: Fluoroscopy time 24 seconds. One image. Dictated by Ramiro Ruiz MD @ 05/19/2025 6:17:54 AM (Electronically Signed) us Tripp Kelsey DPM FLUOROSCOPY Final Res ult * Patient Source Anti HBC (05/18/2025 12:55 PM CDT) ANTI HBC Non-React claire Non-React claire 05/18/2025 11:20 PM CDT [facility] Comment:Anti-HBc Antibodies not detected. Does not exclude the possibility of exposure to or infection with HBV. Levels of Anti-HBc may be below the cut-off in early infection. Blood BLOOD SPECIMEN / Unknown Butterfly / Unknown 05/18/2025 12:55 PM CDT 05/18/2025 1:02 PM CDT Tripp Kelsey DP SEND OUTS Final Res ult Performing Organization Address [facility] de Phone Number [facility] [address] [place] [address], * Patient Source Anti HBS (05/18/2025 12:55 PM CDT) [facility] ANTI HBS QUANT <3.50 mIU/mL 05/18/2025 11:35 PM CDT [facility] Blood BLOOD SPECIMEN / Unknown Butterfly / Unknown 05/18/2025 12:55 PM CDT 05/18/2025 1:02 PM CDT Narrative [facility] - 05/18/2025 11:35 PM CDT < 10 mIU/mL Individual is considered not immune to HBV infection. >= 10 mIU/mL Individual is considered immune to HBV infection. Biotin supplements may cause clinically significant interference for this test assay. If interference is suspected, it is strongly recommended that biotin is discontinued for at least one week prior to retesting. rTipp Kelsey DP SEND OUTS Final Res ult Performing Organization Address [facility] Co de Phone Number [facility] [address] [place] [address], * Patient Source Rapid HIV - Unknown HIV (05/18/2025 12:55 PM CDT) SOURCE RAPID HIV SCREEN Non-React claire Non-Reactiv e, Invalid 05/18/2025 1:29 PM CDT [facility] Comment:A NONREACTIVE test r esult means that HIV-1 or HIV-2 antibodies and HIV-1 p24 antigen were not detected in the specimen. Blood BLOOD SPECIMEN / Unknown Butterfly / Unknown 05/18/2025 12:55 PM CDT 05/18/2025 1:03 PM CDT Tripp Kelsey DPM SEND OUTS Final Res ult [facility] [address] [place] [address] * Patient Source HBSAG (05/18/2025 12:55 PM CDT) HBSAG Nonreactive Nonreactive 05/18/2025 11:20 PM CDT [facility] Blood BLOOD SPECIMEN / Unknown Butterfly / Unknown 05/18/2025 12:55 PM CDT 05/18/2025 1:02 PM CDT us Tripp Kelsey DPM SEND OUTS Final Res ult Performing Organization Address [facility] Co de Phone Number [facility] [address] [place] [address], * Patient Source ANTI HCV (05/18/2025 12:55 PM CDT) HEPATITIS C ANTIBODY Non-Reacti ve Non-React claire 05/18/2025 11:29 PM CDT [facility] Comment:Please note, per www .CDC.gov: If a patient is known to be at high risk of HCV infection, or is symptomatic, and the physician's suspicion of HCV infection is high, HCV RNA testing is often employed and is of diagnostic value, even after an initial negative anti-HCV test result. Blood BLOOD SPECIMEN / Unknown Butterfly / Unknown 05/18/2025 12:55 PM CDT 05/18/2025 1:03 PM CDT Tripp Kelsey DPM SEND OUTS Final Res ult [facility] [address] [place] [phone], from Last 3 Months Insurance [place] [employer] Advance Directives * Full Code (Latest Code Status on File) Date Activated Date Inactivated Comments 05/18/2025 12:18 PM 05/18/2025 7:41 PM Question Answer Comments Code Status Discussion: Reviewed Preferences * Full Code Date Activated Date Inactivated Comments 05/18/2025 10:39 AM 05/18/2025 12:18 PM Question Answer Comments Code Status Discussion: Reviewed Preferences Care Teams Public Health Relationship Specialty Start Date End Date Harris Dunlap MD [address] [place] [address] PCP - General Family Practice 05/08/25
--- OUTSIDE RECORDS SUMMARY | 2025-05-20 19:23 | XMS_ITS | Encounter Summary ---
Author Organization [facility] Address [address] [place] [address]. [place] [address] Care Team Providers Care Water And Sewer Systems Superintendent Name Role Phone Artemio Rankin Chi OD Unavailable [phone] Reason for Visit * Reason Onset Date Comments Appointment 11/03/2024 Encounter Details Date Type Department Care Team (Late st Contact Info) Description 11/03/2024 [facility] [address] [facility] [address] [place] [phone] [facility] Appointment Social History Tobacco Use Types Packs/Day Years [...] PM CDT Legal Sex Male 3:09 AM SERVICE MANAGER Gender Identity Male 12/13/2023 11:49 PM CDT Sexual Orientation Choose not to disclose 2023 11:49 PM CDT documented as of this encounter Plan of Treatment Not on file documented as of this encounter Visit Diagnoses Not on filedocumented in this encounter Care Teams Water And Sewer Systems Superintendent Relationship Specialty Start Date End Date Artemio Rankin Chi, OD [address] [place], [place] [id number] Assigned Surgical Provider 12/27/23 documented as of this encounter
[2025-05-20 19:37] VITALS: BP 107/71; PULSE 87; RESP 18; TEMP 36.2; O2SAT 97; BMI 23.0
--- NOTE | 2025-05-20 20:24 | CRLHL7_ITS ---
For Patients: As a result of the Century Cures Act, medical imaging exams and procedure reports are released immediately into your electronic medical record. You may view this report before your referring provider. If you have questions, please contact your health care provider. INDICATION: Right lower quadrant abdominal pain. TECHNIQUE: CT abdomen and pelvis acquired with 79 cc Isovue 370 IV contrast. COMPARISON: None. FINDINGS: Lower chest: Mild bibasilar atelectasis. Liver: Unremarkable. Gallbladder and bile ducts: Unremarkable. Pancreas: Unremarkable. Spleen: Unremarkable. Adrenal glands: Unremarkable. Kidneys: Unremarkable. GI tract: Prominent colonic stool burden. No bowel obstruction. No CT evidence of acute appendicitis. No suspicious bowel wall thickening. Vasculature: No abdominal aortic aneurysm. Grossly patent vasculature. Lymph nodes: No suspicious lymphadenopathy. Peritoneum/Abdominal Wall: No ascites or pneumoperitoneum. No acute abdominal wall abnormality. Pelvis: Normal bladder. Left-sided scrotal hydrocele, incompletely assessed. Bones: No acute abnormality. IMPRESSION: 1. No acute intra-abdominal/pelvic pathology appreciated. 2. Prominent colonic stool burden. 3. Left-sided scrotal hydrocele, incompletely assessed. Please note that all CT scans at this facility use dose modulation, iterative reconstruction, and/or weight-based dosing when appropriate to reduce radiation dose to as low as reasonably achievable. Dictated by Nate Lund MD @ 05/20/2025 9:42:11 PM (Electronically Signed)
[2025-05-20 21:04] LABS: Hematocrit* 44.5 % (37.0-53.0); Hemoglobin* 15.4 gm/dL (13.5-17.5); Immature Granulocytes Abs Auto 0.00 K/uL (0.00-0.30); Immature Granulocytes Pct Auto 0.0 %; Mean Corpuscular HGB Conc 35 gm/dL (32-36); Mean Corpuscular Hemoglobin 31 pg (26-34); Mean Corpuscular Volume 88 fL (80-100); RDW Coefficient of Variation % 11.8 % (11.5-15.5); Red Blood Count* 5.04 m/uL (4.30-5.90); White Blood Count* 4.38 K/uL (4.50-11.00)
[2025-05-20 21:06] LABS: Lymphocytes Absolute Auto 1.30 K/uL (0.90-2.90); Slide Review Reflex No
[2025-05-20 21:11] LABS: Albumin* 4.6 g/dL (3.3-5.0); Chloride* 99 mmol/L (96-114); Potassium* 4.1 mmol/L (3.6-5.1); Sodium* 135 mmol/L (135-149)
[2025-05-20 21:14] LABS: Alanine Aminotransferase* 93 U/L (4-50); Alkaline Phosphatase* 93 U/L (40-150); Anion Gap 8 mEq/L (7-15); Aspartate Amino Transferase* 65 U/L (12-35); Bilirubin Total* 1.4 mg/dL (0.1-1.5); Blood Urea Nitrogen* 13 mg/dL (5-24); Calcium* 10.0 mg/dL (8.4-10.6); Carbon Dioxide* 28 mmol/L (20-32); Creatinine* 0.9 mg/dL (0.5-1.5); Est. Creatinine Clearance* 123.20; Estimated Glomerular Filt Rate 118 ml/min; Glucose* 88 mg/dL (60-115); Total Protein* 8.1 g/dL (6.0-8.3)
--- NOTE | 2025-05-20 22:02 | ED.GENADULT ---
HPI - General Adult General Chief complaint: Abdominal Pain Stated complaint: lower abd pain Time Seen by Provider: 05/20/25 20:11 History of Present Illness HPI narrative: 29-year-old male presents to the emergency department with abdominal pain in the suprapubic area that radiates into the right lower quadrant for the past 24 hours. No prior abdominal surgery. No fever. He reports that he only tends to have a bowel movement about every 5 days or so. Last bowel movement was 5 days ago. He underwent an uncomplicated bunionectomy yesterday and ever since he got home has been feeling a little distended in the abdomen with the lower pain as described. No urinary retention, no dysuria. No rectal discharge or blood. His friend gave him a dose of milk of magnesia about an hour prior to arrival with no significant improvement in symptoms. There is no nausea and vomiting, no back pain, no history of kidney stones. No prior history of similar symptoms. He is not having any fever. Denies any history of any chronic diseases. Has been taking his Tylenol and ibuprofen as prescribed with no significant improvement in symptoms. No known drug allergies. Denies long-term medications. Was recently given a prescription for oxycodone for the foot pain, took 1 yesterday. Recent bunionectomy. ROS is notable for the GI symptoms as above only, otherwise denies times 12 systems. Related Data Home Medications ?Medication ?Instructions ?Recorded ?Confirmed oxycodone 5 mg tablet PO 05/20/25 Allergies Allergy/AdvReac Type Severity Reaction Status Date / Time No Known Drug Allergies Allergy Verified 05/20/25 21:20 PFSH [facility] [place] Social History Smoking Status: Never smoker How often do you have a drink containing alcohol: never AUDIT-C Alcohol total score: 0 Non-prescribed substance use: denies use Exam Const: Vital Signs, click to edit/add: Vital Signs - 24 hr 05/20/25 19:37 Temperature 97.1 F L Pulse Rate [Pulse Oximeter] 87 Respiratory Rate 18 Blood Pressure [Ri ght Upper Arm] 107/71 Pulse Oximetry 97 Oxygen Delivery Me thod Room Air Documenting provider has reviewed patient's vital signs: yes Common normals: no apparent distress and alert General appearance: cooperative and well kempt HENMT: Common normals: normocephalic and moist oral mucous membranes Head and scalp: normocephalic Face and sinus: normal facial exam Throat: posterior oropharynx normal Eye: Common normals: conjunctivae normal General eye: normal appearance of both eyes Conjunctiva: conjunctiva(e) normal Neck & C-Spine: Common normals: full ROM and no lymphadenopathy General: normal visual inspection Resp: Common normals: normal respiratory effort and clear to auscultation bilaterally Effort & inspection: able to speak in complete sentences Auscultation: clear to auscultation bilaterally Cardio: Common normals: regular rate, regular rhythm, S1 normal heart sound and S2 normal heart sound Rate: regular rate Rhythm: regular rhythm Heart sounds: S1 normal and S2 normal GI: Common normals: Normal to inspection, nondistended, normoactive bowel sounds present, no hepatosplenomegaly and no masses Inspection: normal to inspection Palpation: no hepatosplenomegaly Other: Tender to palpation of the suprapubic, left lower quadrant and right lower quadrant areas only. No rebound tenderness or guarding, no pain in the other areas. No mass. : Common normals: no CVA tenderness Bladder/kidney exam: no CVA tenderness Back & Pelvis: Common normals: no CVA tenderness Extremity: Other: Left foot is in cam walker boot, not removed. Neuro: Sensorium/orientation: alert Speech: speech normal Psych: Appearance: well kempt Attitude: engaged Activity/motor behavior: appropriate eye contact Insight: insight good Judgement: judgment good Skin: Common normals: no rashes or lesions noted General skin exam: no rashes or lesions noted Course Course ED Course: 29-year-old male with lower abdominal pain and reported history of constipation. Differential diagnosis including constipation, appendicitis, diverticulitis, colitis, kidney stone, urine infection, amongst others. Will obtain typical intra-abdominal labs, CT of the abdomen and pelvis. Reevaluation(s) Time of Reevaluation #1: 00:53 Reevaluation #1: Patient reporting feeling a lot better. CT report given to me by the nurses indicating no signs of major pathology besides stool backup. He thinks this is likely the source of his pain. Recommended that he do a dose of senna here in the ED and MiraLax. Continue on MiraLax every 8 hours until bowels move well. Okay to repeat a set a tomorrow if needed. Symptoms should be markedly better within 48 hours. Okay to use Tylenol and ibuprofen as prescribed, use the oxycodone sparingly, try to wean office soon as possible. Alarm symptoms reviewed that would warrant ED re-evaluation. He verbalized understanding and agreement of plan. Vital Signs Vital signs: Initial Vital Signs Temperature 97.1 F L 05/20/25 19:37 Temperature Source Temporal Artery Scan 05/20/25 19:37 Pulse Rate 87 05/20/25 19:37 Pulse Rhythm Regular 05/20/25 19:37 Respiratory Rate 18 05/20/25 19:37 Blood Pressure 107/71 05/20/25 19:37 Blood Pressure Mean 83 05/20/25 19:37 Blood Pressure Position Sitting 05/20/25 19:37 Pulse Oximetry 97 05/20/25 19:37 Oxygen Delivery Method Room Air 05/20/25 19:37 Vital Signs Temperature 97.1 F L 05/20/25 19:37 Pulse Rate 87 05/20/25 19:37 Respiratory Rate 18 05/20/25 19:37 Blood Pressure 107/71 05/20/25 19:37 Pulse Oximetry 97 05/20/25 19:37 Oxygen Delivery Method Room Air 05/20/25 19:37 Temperature 97.1 F L 05/20/25 19:37 Pulse Rate 87 05/20/25 19:37 Respiratory Rate 18 05/20/25 19:37 Blood Pressure 107/71 05/20/25 19:37 Pulse Oximetry 97 05/20/25 19:37 Oxygen Delivery Method Room Air 05/20/25 19:37 Medications Administered Medications: Discontinued Medications Generic Name Dose Route Start Last Admin Trade Name Satishq PRN Reason Stop Dose Admin Acetaminophen 1,000 mg 05/20/25 21:46 05/20/25 22:12 Acetaminophen 500 Mg Tablet PO 05/20/25 21:47 1,000 mg ONCE ONE Administration Polyethylene Glycol 17 gm 05/20/25 21:46 05/20/25 22:15 Polyethylene Glycol 3350 17 Gm Pack PO 05/20/25 21:47 17 gm ONCE ONE Administration Senna/Docusate Sodium 2 tab 05/20/25 21:47 05/20/25 22:13 Sennosides/Docusate Tablet PO 05/20/25 21:48 2 tab ONCE ONE Administration Medical Decision Making Lab Data Lab results reviewed: Yes I reviewed the patient's lab results Labs: Lab Results 05/20/25 Range/Units 20:50 WBC 4.38 L (4.50-11.00) K/uL RBC 5.04 (4.30-5.90) m/uL Hgb 15.4 (13.5-17.5) gm/dL Hct 44.5 (37.0-53.0) % MCV 88 (80-100) fL MCH 31 (26-34) pg MCHC 35 (32-36) gm/dL RDW Coeff of Erin 11.8 (11.5-15.5) % Plt Count 220 (140-440) K/uL Neut % (Auto) 60.8 (42.0-72.0) % Lymph % (Auto) 28.8 (20-44) % [place] % (Auto) 8.4 (0.0-11.0) % Eos % (Auto) 1.8 (0.0-7.0) % Baso % (Auto) 0.2 (0.0-3.0) % Neut # (Auto) 2.70 (1.7-7.0) K/uL Lymph # (Auto) 1.30 (0.90-2.90) K/uL [place] # (Auto) 0.40 (0.00-0.90) K/UL Eos # (Auto) 0.10 (0.00-0.50) K/uL Baso # (Auto) 0.00 (0.00-0.30) K/uL Abs Immat Gran (auto) 0.00 (0.00-0.30) K/uL Imm/Tot Granulo (auto) 0.0 % Sodium 135 (135-149) mmol/L Potassium 4.1 (3.6-5.1) mmol/L Chloride 99 (96-114) mmol/L Carbon Dioxide 28 (20-32) mmol/L Anion Gap 8 (7-15) mEq/L BUN 13 (5-24) mg/dL Creatinine 0.9 (0.5-1.5) mg/dL Estimated Creat Clear 123.20 Estimated GFR 118 ml/min Glucose 88 (60-115) mg/dL Calcium 10.0 (8.4-10.6) mg/dL Total Bilirubin 1.4 (0.1-1.5) mg/dL AST 65 H (12-35) U/L ALT 93 H (4-50) U/L Alkaline Phosphatase 93 (40-150) U/L C-Reactive Protein 2.0 H (0.5-1.0) mg/dL Total Protein 8.1 (6.0-8.3) g/dL Albumin 4.6 (3.3-5.0) g/dL Lipase 3168 H (23-300) U/L Imaging Data CT scan - abdomen: Attestation: I have reviewed the pertinent imaging results. My impression: Constipation but no signs of appendicitis, mass, inflammation or diverticulitis Radiologist's impression: IMPRESSION: 1. No acute intra-abdominal/pelvic pathology appreciated. 2. Prominent colonic stool burden. 3. Left-sided scrotal hydrocele, incompletely assessed. Discharge Plan Discharge Clinical Impression: Constipation Patient Disposition: Home w/ Parent or Adult Condition: Stable Instructions: Constipation (DC) Additional Instructions: As we discussed, there are no signs of any major pathology on your labs or on the CT. It does look like you are chronically constipated but a little more than usual. This is likely because of the anesthesia and pain medications on top of chronic constipation. In the emergency room, you were given your 1st dose of MiraLax as well as 2 senna tablets. I would like for you to continue use of the MiraLax 17 g which is 1 standard dose every 8 hours until your bowels move very loosely. Typically this is 2-3 doses but may take up to 7 doses. You can keep repeating a stimulant laxative every 24 hours like senna or milk of magnesia if you need additional help. Once her bowels have moved very loosely, I would like for you to continue an [id number] stool softener like docusate. This is sold as brand-name Colace or other stool softeners. Continue that every day to every other day for the next month to help reset your colon tone and keep your stools moving well. If you have high fevers, severe pain, lots of rectal bleeding or other unexpected changes, please return to the emergency room. You may keep using the Tylenol and ibuprofen for your foot pain but try to use the oxycodone sparingly as it will worsen constipation. Activity Level: Activity as Tolerated Discharge Diet: Regular Prescriptions: No Action oxycodone 5 mg tablet PO Follow Up/Referrals: Provider,Not a Local [Primary Care Provider, Family Practice] Stand Alone Forms: [employer] Info Instructions
[2025-05-20] MEDS: ACETAMINOPHEN 500 MG TABLET 1000 MG PO (22:12)
[2025-05-20] MEDS: SENNOSIDES/DOCUSATE TABLET 2 TAB PO (22:13)
== END 2025-05-20 22:24 | disposition home or self-care (01) ==
PROVIDERS: Emergency Provider Family Medicine
DX: K59.00 Constipation, unspecified (principal)
CPT/HCPCS: 36415; 74177; 80053; 81003; 83690; 85025; 86140; 99284; A9270; Q9967

== ENCOUNTER 2025-07-21 09:15 | Outpatient (RCR) | payer BC, SELFPAY | END 2025-08-04 17:27 | disposition home or self-care (01) | PROVIDERS: Visit Provider Podiatrist | DX: Z09 Encounter for follow-up examination after completed treatment for conditions other than malignant neoplasm (principal); M21.612 Bunion of left foot; M20.12 Hallux valgus (acquired), left foot; Z98.890 Other specified postprocedural states | CPT/HCPCS: 97110; 97112; 97116; 97161; 97530 ==